=== PATIENT | male | born 2005 | race Caucasian/White ===

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

== ENCOUNTER 2023-03-19 10:43 | Emergency (ER) | payer MEDICAID, SELFPAY ==
[2023-03-19 11:01] VITALS: BP 162/99; PULSE 94; RESP 20; TEMP 36.7; O2SAT 96; BMI 29.0
--- NOTE | 2023-03-19 12:14 | ED.NAVMDI1 ---
HPI - Nausea/Vomiting/Diarrhea General Chief complaint: Nausea/Vomiting/Diarrhea Stated complaint: SORE THROAT/ ABDOMINAL PAIN Time Seen by Provider: 03/19/23 12:08 Source: patient Mode of arrival: walk-in Limitations: no limitations History of Present Illness HPI Narrative: patient here with his father for evaluation of some nausea. On Sunday he started with vomiting. He did not have vomiting yesterday or today but he feels like he still nauseated. He did not remember when his last bowel movement was. He had a laparoscopic appendectomy done here several months ago and has recovered nicely without any problems. He's not had a urinary symptomatology. He is not running a fever. He is not on any antibiotics. He's not had any [place] symptoms such as shortness of breath severe cough or cervical severe sore throat. No skin rash. He has not seen any blood in his bowel movements. Related Data Home Medications Medication Instructions Recorded Confirmed sertraline 25 mg tablet 25 mg PO Q24H 12/03/22 03/19/23 aripiprazole 2 mg tablet 2 mg PO DAILY 03/19/23 03/19/23 Previous Rx's Medication Instructions Recorded hydrocodone 5 mg-acetaminophen 325 1 tab PO Q6H PRN pain #10 tabs 12/04/22 mg tablet Allergies Allergy/AdvReac Type Severity Reaction Status Date / Time No Known Drug Allergies Allergy Verified 12/03/22 22:53 PFSH PFS Medical History (Updated 03/19/23 @ 15:18 by Remy James MD) Concussion ?S06.0XAA - Concussion with loss of consciousness status unknown, initial encounter (ICD-10) Autism ?F84.0 - Autistic disorder (ICD-10) Family History (Updated 12/04/22 @ 02:07 by Shyann Artis RN) Other Family history of cancer Family history of myocardial infarction Social History (Updated 12/04/22 @ 02:08 by Shyann Artis RN) Within the past year, how often did you have a drink containing alcohol: never Score interpretation: A score less than 4 is consistent with normal alcohol consumption. Smoking status: Never smoker Non-prescribed substance use: denies use Highest level of school completed/degree received: 12th grade, no diploma Little interest or pleasure in doing things: not at all Feeling down, depressed, or hopeless: not at all Feel stressed/tense/nervous/anxious/difficulty sleeping: not at all Do you think of yourself as: straight/heterosexual Gender Identity: male Exam Narrative Exam Narrative: awake alert is not uncomfortable. He has good bowel sounds in all four quadrants. He has no peritoneal findings. Previous laparoscopic surgical incisions are noted throughout the abdomen is no evidence of complications or infection of the abdominal wall. There is no peritoneal findings. There is no tenderness in right upper quadrant. His heart and lung examination was unremarkable he had no complaints. Abdominal series x-rays will be done since I don't believe he has an acute abdomen. Routine blood work as well. Constitutional Vital Signs, click to edit/add: Last Vital Signs Temp 98.1 F 03/19/23 11:01 Pulse 94 H 03/19/23 11:01 Resp 20 03/19/23 11:01 BP 162/99 H 03/19/23 11:01 Pulse Ox 96 03/19/23 11:01 O2 Del Method Room Air 03/19/23 11:01 Course Vital Signs Vital signs: Vital Signs Temperature 98.1 F 03/19/23 11:01 Pulse Rate 94 H 03/19/23 11:01 Respiratory Rate 20 03/19/23 11:01 Blood Pressure 162/99 H 03/19/23 11:01 Pulse Oximetry 96 03/19/23 11:01 Oxygen Delivery Method Room Air 03/19/23 11:01 Temperature 98.1 F 03/19/23 11:01 Pulse Rate 94 H 03/19/23 11:01 Respiratory Rate 20 03/19/23 11:01 Blood Pressure 162/99 H 03/19/23 11:01 Pulse Oximetry 96 03/19/23 11:01 Oxygen Delivery Method Room Air 03/19/23 11:01 MDM - Nausea/Vomiting/Diarrhea MDM Narrative Medical decision making narrative: patient's abdominal series is essentially benign but I do notice that there is a very large stool burn. His white blood cell count is normal. I believe his pain is functional and due to his stool burn. There is a suggestion that he may have ashburger syndrome so I will speak to the family as well Lab Data Labs: Lab Results 03/19/23 Range/Units 12:25 WBC 5.8 (4.0-11.0) 10^3/uL RBC 6.27 H (4.70-6.10) 10^6/uL Hgb 17.9 (14.0-18.0) g/dL Hct 52.4 (42.0-54.0) % MCV 83.6 (80.0-94.0) fL MCH 28.5 (25.9-34.0) pg MCHC 34.2 (29.9-35.2) g/dL RDW 11.9 (11.0-15.0) % Plt Count 287 (150-450) 10^3/uL MPV 8.6 L (9.5-13.5) fL Neut % (Auto) 51.2 (43.0-75.0) % Lymph % (Auto) 33.2 (20.5-60.0) % [place] % (Auto) 11.8 (1.7-12.0) % Eos % (Auto) 2.4 (0.9-7.0) % Baso % (Auto) 1.2 (0.2-2.0) % Neut # (Auto) 3.0 (1.4-6.5) 10^3/uL Lymph # (Auto) 1.9 (1.2-3.8) 10^3/uL [place] # (Auto) 0.7 (0.3-0.8) 10^3/uL Eos # (Auto) 0.1 (0.0-0.7) 10^3/uL Baso # (Auto) 0.1 (0.0-0.1) 10^3/uL Abs Immat Gran (auto) 0.01 (0.00-0.03) 10^3/uL Imm/Tot Granulo (auto) 0.2 (0.0-0.5) % Sodium 136 (136-145) mmol/L Potassium 3.7 (3.5-5.1) mmol/L Chloride 101 (98-107) mmol/L Carbon Dioxide 27.5 (21.0-32.0) mmol/L Anion Gap 11.2 BUN 11.0 (7.0-18.0) mg/dL Creatinine 0.83 (0.70-1.30) mg/dL Est GFR ( Amer) >60 (>=60) Est GFR (Non-Af Amer) >60 (>=60) BUN/Creatinine Ratio 13.3 Glucose 96 (74-106) mg/dL Calcium 9.2 (8.5-10.1) mg/dL Total Bilirubin 0.7 (0.2-1.0) mg/dL AST 34 (15-37) U/L ALT 75 H (16-63) U/L Alkaline Phosphatase 119 H (46-116) U/L Total Protein 7.9 (6.4-8.2) g/dL Albumin 3.8 (3.4-5.0) g/dL Globulin 4.1 g/dL Albumin/Globulin Ratio 0.9 Discharge Plan Discharge Chief Complaint: Nausea/Vomiting/Diarrhea Clinical Impression: Acute constipation Patient Disposition: Home, Self-Care Time of Disposition Decision: 15:18 Prescriptions / Home Meds: No Action sertraline 25 mg tablet 25 mg PO Q24H hydrocodone-acetaminophen 5-325 mg tablet 1 tab PO Q6H PRN (Reason: pain) Qty: 10 0RF aripiprazole 2 mg tablet 2 mg PO DAILY Additional Instructions: fleets enema if no results take magnesium citrate,which is [id number] Stand Alone Forms: Portal Instructions Referrals: Cristóbal Ernst MD [Primary Care Provider] - 1 week
--- NOTE | 2023-03-19 12:15 | XR_ITS ---
The [address] [address] Patient Name: ROHAN MCBRIDE MRN: [id number] date: 2005 Sex: M Assigned Patient Location: ER Current Patient Location: ER Accession/Order Number: [id number] Exam Date: 03/19/2023 12:35 Report Date: 03/19/2023 12:49 At the request of: LINDA HENRY Procedure: XR acute abdomen series EXAMINATION: XR acute abdomen series HISTORY: abdominal pain COMPARISON: No relevant comparison available. FINDINGS: LUNGS: No infiltrate, pneumothorax, or pleural effusion. MEDIASTINUM: No abnormal widening. BOWEL GAS PATTERN: Non-obstructed. FREE AIR: None. CALCIFICATIONS: None significant. BONES: No fracture or visible bone lesion. OTHER: Negative. XR/XR acute abdomen series IMPRESSION: Clear lungs Nonobstructive bowel gas pattern Electronically authenticated by: SUNDEEP SANTORO Date: 03/19/2023 12:49
[2023-03-19 12:32] LABS: Basophils Absolute Auto 0.1 10^3/uL (0.0-0.1); Basophils Percent Auto 1.2 % (0.2-2.0); Eosinophils Absolute Auto 0.1 10^3/uL (0.0-0.7); Eosinophils Percent Auto 2.4 % (0.9-7.0); Hematocrit 52.4 % (42.0-54.0); Hemoglobin 17.9 g/dL (14.0-18.0); Immature Granulocytes Abs Auto 0.01 10^3/uL (0.00-0.03); Immature Granulocytes Pct Auto 0.2 % (0.0-0.5); Lymphocytes Absolute Auto 1.9 10^3/uL (1.2-3.8); Lymphocytes Percent Auto 33.2 % (20.5-60.0); Mean Corpuscular HGB Conc 34.2 g/dL (29.9-35.2); Mean Corpuscular Hemoglobin 28.5 pg (25.9-34.0); Mean Corpuscular Volume 83.6 fL (80.0-94.0); Mean Platelet Volume 8.6 fL (9.5-13.5); Monocytes Absolute Auto 0.7 10^3/uL (0.3-0.8); Monocytes Percent Auto 11.8 % (1.7-12.0); Neutrophils Percent Auto 51.2 % (43.0-75.0); Platelet Count 287 10^3/uL (150-450); Red Blood Count 6.27 10^6/uL (4.70-6.10); Red Cell Distribution Width 11.9 % (11.0-15.0); White Blood Count 5.8 10^3/uL (4.0-11.0)
[2023-03-19] MEDS: ONDANSETRON 4 MG RAPDIS TABLET SL (12:44)
[2023-03-19 12:50] LABS: Alanine Aminotransferase 75 U/L (16-63); Albumin Globulin Ratio 0.9; Albumin Level 3.8 g/dL (3.4-5.0); Alkaline Phosphatase 119 U/L (46-116); Anion Gap 11.2; Aspartate Amino Transferase 34 U/L (15-37); BUN Creatinine Ratio 13.3; Bilirubin Total 0.7 mg/dL (0.2-1.0); Calcium 9.2 mg/dL (8.5-10.1); Carbon Dioxide 27.5 mmol/L (21.0-32.0); Chloride 101 mmol/L (98-107); Estimated GFR (African America >60 (>=60); Estimated GFR (Non-African Ame >60 (>=60); Globulin 4.1 g/dL; Glucose 96 mg/dL (74-106); Potassium 3.7 mmol/L (3.5-5.1); Sodium 136 mmol/L (136-145); Total Protein 7.9 g/dL (6.4-8.2)
== END 2023-03-19 15:26 | disposition home or self-care (01) ==
PROVIDERS: Emergency Provider Emergency Medicine Emergency Medical Services; PCP Family Medicine
DX: K59.00 Constipation, unspecified (principal); F84.0 Autistic disorder; Z90.49 Acquired absence of other specified parts of digestive tract; Z79.899 Other long term (current) drug therapy
CPT/HCPCS: 36415; 74022; 80053; 85025; 99284; Q0162